=== PATIENT | male | born 1975 | race Hispanic/Latino ===

== ENCOUNTER 2020-06-24 12:17 | Outpatient (NON) | payer OTHER, BC, SELFPAY ==
[2020-06-25 13:19] LABS: SARS-CoV-2 RNA PCR Positive
== END 2020-06-24 12:18 ==
LOC: ANHCOVIDDT 12:21
PROVIDERS: PCP Internal Medicine; Visit Provider Internal Medicine
DX: U07.1 COVID-19 (principal)
CPT/HCPCS: 87635; C9803; U0003

== ENCOUNTER 2020-10-21 17:22 | Outpatient (CLI) | payer OTHER, BC, SELFPAY | END 2020-10-21 17:23 | disposition home or self-care (01) | LOC: ANHCOVIDVC 17:22 | PROVIDERS: PCP Internal Medicine | DX: Z23 Encounter for immunization (principal) | CPT/HCPCS: 0001A; 91300 ==

== ENCOUNTER 2020-11-11 16:57 | Outpatient (CLI) | payer OTHER, BC, SELFPAY | END 2020-11-11 16:58 | disposition home or self-care (01) | LOC: ANHCOVIDVC 16:58 | PROVIDERS: PCP Internal Medicine | DX: Z23 Encounter for immunization (principal) | CPT/HCPCS: 0002A; 91300 ==

== ENCOUNTER → 2021-08-15 08:05 | Outpatient (CLI) | payer OTHER, SELFPAY ==
[2021-08-16 14:39] LABS: SARS-CoV-2 RNA PCR Negative
== END ==
PROVIDERS: PCP Internal Medicine; Visit Provider Internal Medicine
DX: R68.89 Other general symptoms and signs (principal); Z20.822 Contact with and (suspected) exposure to COVID-19
CPT/HCPCS: C9803; U0003; U0005

== ENCOUNTER 2024-03-19 07:55 | Outpatient (CLI) | payer OTHER, SELFPAY ==
[2024-03-19 13:10] LABS: Alanine Aminotransferase 118 U/L (6-50); Albumin Level 4.1 g/dL (3.5-5.1); Alkaline Phosphatase 91 U/L (38-126); Anion Gap 9 mmol/L (4-12); Aspartate Amino Transferase 101 U/L (17-59); Bilirubin,Total 0.7 mg/dL (0.2-1.3); Blood Urea Nitrogen 17 mg/dL (9-20); Calcium 8.8 mg/dL (8.4-10.2); Carbon Dioxide 28 mmol/L (22-30); Chloride 105 mmol/L (98-107); Cholesterol 159 mg/dL (0-200); Estimated Glomerular Filt Rate > 60; Glucose 160 mg/dL (65-110); HDL Direct 30 mg/dL; Potassium 4.5 mmol/L (3.4-5.0); Sodium 142 mmol/L (137-145); Triglycerides 132 mg/dL (<150)
[2024-03-19 13:21] LABS: LDL Cholesterol Direct 114 mg/dL
[2024-03-19 15:26] LABS: Hemoglobin A1C 7.4 % (<5.7)
== END 2024-03-19 07:56 | disposition home or self-care (01) ==
LOC: ANHGOSHLAB 07:57
PROVIDERS: PCP Family Medicine; Visit Provider Family Medicine
DX: E78.5 Hyperlipidemia, unspecified (principal); R73.03 Prediabetes; Z13.228 Encounter for screening for other metabolic disorders
CPT/HCPCS: 36415; 80053; 80061; 83036

== ENCOUNTER 2025-03-22 07:45 | Outpatient (CLI) | payer OTHER, SELFPAY ==
--- NOTE | 2025-04-08 14:56 | WPDHOMESLEEP ---
Sleep Study - Home Unattended Date of Study: 03/22/25 Ordering Provider: Adama Jovel MD Interpreting Provider: Sofia Reinoso DO Home Sleep Study Type: Watch PAT Height: 1.8 m Weight: 165.108 kg Body Mass Index: 50.8 Neck Circumference (inches): 22 [place]: 4 Reason for Sleep Study loud snoring, interruptions in breathing while asleep Sleep History The patient is a 49-year-old male that had a sleep study ordered by his primary care physician for evaluation of sleep apnea. The patient admits to snoring loudly, interruptions in breathing while asleep and trouble maintaining sleep. He does choke or gasp at night. He does have trouble breathing on his back. He denies morning headaches. He does have a dry or sore mouth /throat in the morning. He denies nocturnal heartburn. He urinates twice throughout the night. He does have difficulty falling asleep. He does have difficulty returning to sleep if he wakes up throughout the night. He does use hypnotic or sedative. He denies feeling anxious about sleep. He denies feeling tired or sleepy during the day. He denies feeling tired in the morning. He denies having the urge to fall asleep during the day. He does feel drowsy while driving. He denies sleep paralysis, cataplexy and hypnagogic/ hypnopompic hallucinations. He denies clenching or grinding his teeth. He denies kicking or jerking his legs excessively. He denies having a restless feeling in his legs. He goes to bed at 8:00 p.m. on work days and at 9:00 p.m. on his days off. It takes him 30 minutes to fall asleep. He gets 9 hours of sleep per night. His sleep is somewhat restorative on days off. He denies taking any planned naps. He denies dream enactment behavior. He denies sleep walking. He consumes 1-2 cups of caffeinated beverage per day. He denies tobacco and alcohol use. He denies exercising on a regular basis. [facility] Past Medical History Medical History Seasonal allergies Abscess of buttock, right Hyperlipidemia Hypertension Surgical History Surgical History S/P orchiopexy (~1986) History of ectropion repair (~1983) Family History Family History Mother Diabetes mellitus Hypertension Bipolar disorder Father Acute myocardial infarction Diabetes mellitus Malignant neoplasm of prostate Grandparent , Alzheimers Age 96 Alzheimer disease Grandparent , Pneumonia Age 72 Acute myocardial infarction Diabetes mellitus Grandparent , Age Unknown Diabetes mellitus Grandparent , Age Unknown Diabetes mellitus Social History Social History Social History: Caffeine- 2-6 cups of coffee daily Smoking status: Never smoker Alcohol intake: current Alcohol use details: socially/rare Substance use: never Substance use type: does not use Do You Feel Safe in your Home?: Yes Lack of Transportation: No Lack of Food: Never True Current Housing: I Have Housing Concerned About Future Housing: No Difficulty Paying Gas/Electric Bills: No Difficulty Paying for Meds: No Currently Unemployed: No Education: Decline to Answer Difficulty w/ Childcare or Family Care: No Living arrangements: with family Occupation/Education: occupation Gender identity (if verbalized by the patient): Male Sexual Orientation (if Verbalized by the Patient): Straight or Heterosexual Agree to blood products: Yes Medications Home Medications ?Medication ?Instructions ?Recorded ?Confirmed ?Type atorvastatin 10 mg tablet 10 mg PO DAILY #90 tabs 02/25/25 02/25/25 Rx metoprolol succinate 50 mg 50 mg PO DAILY #90 tabs 02/25/25 02/25/25 Rx tablet,extended release 24 hr testosterone 50 mg/mL 50 mg IM WEEKLY 02/25/25 02/25/25 History intramuscular solution tirzepatide 15 mg/0.5 mL 15 mg (0.5 mL) subcut WEEKLY #2 mL 02/25/25 02/25/25 Rx subcutaneous pen injector (Caleb) Sleep Procedure The sleep study was completed using [employer] a technically adequate device with seven channels: peripheral arterial tone, actigraphy, body position, snore, respiratory movement, pulse oximetry, sleep staging, and heart rate. Prior to using the device, the patient received verbal and written instructions for its application and was provided with the help desk phone number for additional telephonic instruction with 24-hour availability of qualified personnel to answer questions. The study was scored using CMS guidelines. Sleep Architecture The total recording time is 9 hrs, 35 min. The total sleep time is 8 hrs, 46 min. Sleep latency is 22 minutes. REM latency is 74 minutes. The patient had 5 episodes of waking. Sleep architecture shows 5.1% deep sleep, 65.7% light sleep, and (as % Total Sleep Time) showed NREM (Light 65.7%; Deep 5.1%), and a 29.2% stage REM. The patient spent 39.2% of total sleep time in the supine position. Sleep efficiency was 91.48. Respiratory Analysis The overall AHI (pAHI 4%:) is 74.3. The overall AHI (pAHI 3%:) is 78.4. The central AHI is 1.5. The AHI was 81.7 in NREM and 70.4 in REM sleep. The AHI was 87.2 in Supine and 72.6 in Non-supine sleep. Percent of Cristian Melendez respirations is 0.0. Oximetry Data The oxygen desaturation index (RACHELL 4%:) is 66.8. The mean saturation is 89%, and the lowest saturation is 64%. Time spent with saturation < 88% is 175.1 minutes. Snoring Profile Snoring average intensity is 55 dB. The patient snored above 45 decibels for 337.6 minutes, 64.1% of sleep time. Cardiac Profile The average pulse rate is 80 beats per minutes. The lowest pulse rate is 58 bpm. The highest pulse rate reported is 123 bpm. Atrial fibrillation was not detected. Premature beats occur <0.1 per minute. Assessment and Plan Assessment and Plan (1) REX (obstructive sleep apnea): Code(s): G47.33 - Obstructive sleep apnea (adult) (pediatric) Status: Acute Assessment and Plan: The patient had an overall AHI of 74.3 with desaturation down to 64%. This is consistent with severe sleep apnea. I recommend that the patient have a CPAP Titration study with the use of a hypnotic to ensure we obtain enough sleep data and find an optimal pressure setting. Data The data obtained during this sleep study is adequate for interpretation. Certification This sleep study has been reviewed by a board certified sleep medicine physician.
[2025-04-13 17:12] VITALS: BMI 50.8
== END 2025-03-23 13:27 | disposition home or self-care (01) ==
LOC: ANHCSM 07:47
PROVIDERS: PCP Family Medicine; Visit Provider Family Medicine
DX: G47.10 Hypersomnia, unspecified (principal); G47.33 Obstructive sleep apnea (adult) (pediatric)
CPT/HCPCS: 95800

== ENCOUNTER 2025-04-15 08:16 | Outpatient (CLI) | payer OTHER, SELFPAY ==
[2025-04-15 13:14] LABS: Hematocrit 57.8 % (42.0-52.0); Hemoglobin 18.8 g/dL (14.0-18.0); Immature Granulocyte Percent A 0.8 % (0-0.5); Lymphocytes Absolute Auto 2.16 K/mm3 (0.9-3.2); Mean Corpuscular HGB Conc 32.5 g/dl (32-36); Mean Corpuscular Hemoglobin 29.7 pg (26-34); Mean Corpuscular Volume 91.5 fl (80-100); Nucleated Red Blood Cells Absolute Auto 0.000 K/mm3 (0.0-0.012); Nucleated Red Blood Cells Perc 0.0 % (0.0-0.2); Platelet Count Result 284 k/mm3 (150-375); Red Blood Count 6.32 M/mm3 (4.6-6.20); White Blood Count 10.5 K/mm3 (4.5-10.0)
[2025-04-15 13:38] LABS: Hemoglobin A1C 5.4 % (<5.7)
[2025-04-15 13:54] LABS: Alanine Aminotransferase 30 U/L (6-50); Albumin Level 4.4 g/dL (3.5-5.1); Alkaline Phosphatase 70 U/L (38-126); Anion Gap 9 mmol/L (4-12); Aspartate Amino Transferase 71 U/L (17-59); Bilirubin,Total 1.1 mg/dL (0.2-1.3); Blood Urea Nitrogen 15 mg/dL (9-20); Calcium 9.5 mg/dL (8.4-10.2); Carbon Dioxide 26 mmol/L (22-30); Chloride 106 mmol/L (98-107); Cholesterol 141 mg/dL (0-200); Estimated Glomerular Filt Rate > 60; Glucose 88 mg/dL (65-110); HDL Direct 31 mg/dL; Potassium 4.0 mmol/L (3.4-5.0); Sodium 141 mmol/L (137-145); Thyroid Stimulating Hormone Reflex 1.910 uIU/mL (0.465-4.68); Total Protein 7.6 g/dL (6.3-8.2); Triglycerides 98 mg/dL (<150)
[2025-04-15 15:02] LABS: Vitamin B12 660.0 pg/mL (239-931)
[2025-04-15 16:27] LABS: MALB Creatinine Ratio 48.6 mg/g (0-30)
== END 2025-04-15 08:17 | disposition home or self-care (01) ==
LOC: ANHGOSHLAB 08:16
PROVIDERS: PCP Family Medicine; Visit Provider Family Medicine
DX: I10 Essential (primary) hypertension (principal); E53.8 Deficiency of other specified B group vitamins; Z00.00 Encounter for general adult medical examination without abnormal findings; E11.9 Type 2 diabetes mellitus without complications; E55.9 Vitamin D deficiency, unspecified; E78.5 Hyperlipidemia, unspecified
CPT/HCPCS: 36415; 80053; 80061; 82043; 82306; 82607; 83036; 84443; 85025

== ENCOUNTER → 2025-04-20 | Outpatient (CLI) | payer OTHER, SELFPAY ==
--- NOTE | 2025-05-07 11:26 | P.SLEEP_ITS ---
Sleep Study Date of Study: 04/20/25 Ordering Provider: Adama Jovel MD Interpreting Physician: Coty Valentine MD Sleep Study Type: CPAP Titration Height: 1.8 m Weight: 160.572 kg Body Mass Index: 49.4 Neck Circumference (inches): 22 [place]: 4 Reason for Sleep Study * 03/22/2025 home sleep test using WatchPat showing severe obstrutive sleep apnea, AHI 74.3 with desaturation to 64%. He returns for a CPAP titration. Sleep History His sleep history is taken from his 03/22/25 home sleep test. Jaden Nair is a 49-year-old male who had a home sleep test for snoring and witnessed apneas. The patient admits to snoring loudly, interruptions in breathing while asleep and trouble maintaining sleep. He does choke or gasp at night. He does have trouble breathing on his back. He denies morning headaches. He has a dry or sore mouth /throat in the morning. He denies nocturnal heartburn. He urinates twice during the night. He has difficulty falling asleep and difficulty returning to sleep when he wakes during the night. He does use hypnotic or sedative. He denies feeling anxious about sleep. He denies feeling tired or sleepy during the day. He denies feeling tired in the morning. He denies cunningham ving the urge to fall asleep during the day. He feels drowsy while driving. He denies sleep paralysis, cataplexy and hypnagogic/ hypnopompic hallucinations. He denies clenching or grinding his teeth. He denies kicking or jerking his legs excessively. He denies having a restless feeling in his legs. Normal bedtime is 8:00 p.m. on work days and at 9:00 p.m. on his days off. It takes him 30 minutes to fall asleep. He gets 9 hours of sleep per night. His sleep is somewhat restorative on days off. He denies taking any planned naps. He denies dream enactment behavior. He denies sleep walking. He consumes 1-2 cups of caffeinated beverage per day. He denies tobacco and alcohol use. He denies exercising on a regular basis. [facility] Past Medical History Medical History REX (obstructive sleep apnea) Seasonal allergies Abscess of buttock, right Hyperlipidemia Hypertension Surgical History Surgical History S/P orchiopexy (~1986) History of ectropion repair (~1983) Family History Family History Mother Diabetes mellitus Hypertension Bipolar disorder Father Acute myocardial infarction Diabetes mellitus Malignant neoplasm of prostate Grandparent , Alzheimers Age 96 Alzheimer disease Grandparent , Pneumonia Age 72 Acute myocardial infarction Diabetes mellitus Grandparent , Age Unknown Diabetes mellitus Grandparent , Age Unknown Diabetes mellitus Social History Social History Social History: Caffeine- 2-6 cups of coffee daily Smoking status: Never smoker Alcohol intake: current Alcohol use details: socially/rare Substance use: never Substance use type: does not use Do You Feel Safe in your Home?: Yes Lack of Transportation: No Lack of Food: Never True Current Housing: I Have Housing Concerned About Future Housing: No Difficulty Paying Gas/Electric Bills: No Difficulty Paying for Meds: No Currently Unemployed: No Education: Decline to Answer Difficulty w/ Childcare or Family Care: No Living arrangements: with family Occupation/Education: occupation Gender identity (if verbalized by the patient): Male Sexual Orientation (if Verbalized by the Patient): Straight or Heterosexual Agree to blood products: Yes Medications Home Medications ?Medication ?Instructions ?Recorded ?Confirmed ?Type atorvastatin 10 mg tablet 10 mg PO DAILY #90 tabs 02/0902/25/25 Rx metoprolol succinate 50 mg 50 mg PO DAILY #90 tabs 02/25/25 Rx tablet,extended release 24 hr testosterone 50 mg/mL 50 mg IM WEEKLY 02/25/25 History intramuscular solution tirzepatide 15 mg/0.5 mL 15 mg (0.5 mL) subcut WEEKLY #2 mL 02/25/25 02/25/25 Rx subcutaneous pen injector (Caleb) lisinopril 10 mg tablet 10 mg PO DAILY #90 tabs 04/05 Rx Sleep Procedure A full CPAP polysomnogram using the [employer] multi-channel system recorded the standard physiologic parameters including EEG, EOG, submentalis EMG, anterior tibialis EMG, EKG, body position, nasal and oral airflow using nasal pressure sensor and thermistor. Respiratory parameters of chest and abdominal movements were recorded with Respiratory Inductance Plethysmography belts. Oxygen saturation was recorded by pulse oximetry. Video monitoring was also performed. Sleep stages, periodic limb movements, and EEG arousals were scored in 30 second epochs according to the criteria of the AASM Scoring Manual. The Apnea-Hypopnea Index was calculated using [facility] guidelines for definition of hypopnea while scoring respiratory events. The patient was started on CPAP using a large [employer] Solo nasal mask, titrated from CPAP 4 cm to CPAP 17 cm. At CPAP 17 cm, the patient spent 28.5 minutes awake, 7.5 minutes in non-REM and 17.5 minutes in REM with a sleep efficiency of 87.7% and a residual apnea-hypopnea index of 19.2 with a minimum saturation of 90%. He had supine REM at this setting. Sleep Architecture The total recording time was 419.4 minutes. The total sleep time was 384.0 minutes. Sleep latency was 8.0 minutes. REM latency was 60.0 minutes. Sleep efficiency was 91.6%. The patient had 26 awakenings for an awakening index of 4.1. Wake after Sleep Onset time was 27.0 minutes. The patient spent 23.5 minutes, 6.1% of total sleep time in Stage N1. The patient spent 243.0 minutes, 63.3% in Stage N2. The patient spent 25.0 minutes, 6.5% in Stage N3. The patient spent 92.5 minutes, 24.1% in Stage REM. Respiratory Analysis The patient had 84 hypopneas, 16 obstructive apneas, no mixed apneas, and 2 central apneas for an overall Apnea Hypopnea Index of 15.9 events per hour. The REM Apnea Hypopnea Index was 24.0. The NREM Apnea Hypopnea Index was 13.4. The patient had a Central Apnea Hypopnea Index of 0.3. There were no Respiratory Effort Related Arousals. The Respiratory Disturbance Index is 17.7 events per hour. There was no evidence of Cristian-Melendez Respirations. Arousals There were 81 total arousals for an arousal index of 12.7. There were 68 spontaneous arousals for an index of 10.6. There were 4 arousals due to respiratory events for an index of 0.6. There were 6 arousals due to periodic limb movements for an index of 0.9. There were 3 arousals due to isolated limb movements for an index of 0.5. Periodic Limb Movements The patient had 18 isolated limb movements with an index of 2.8. The patient had 80 periodic limb movements with index of 12.5. Patient had a total of 98 limb movements with a total limb movement index of 15.3. Oximetry Data The patient had an average oxygen saturation of 92.5% in sleep with a minimum oxygen saturation of 80% and a maximum oxygen saturation of 98%. The patient had 110 oxygen desaturations that were 4% or greater resulting in an Oxygen Desaturation Index of 17.2. The patient spent 15.4 minutes, 3.7% of total sleep time with an oxygen saturation below 88%. Snoring Profile At the optimal pressure, snoring was eliminated. Cardiac Profile The EKG showed normal sinus rhythm. The patient had an average pulse rate of 76 bpm with a minimum pulse rate of 60 bpm and a maximum pulse rate of 112 bpm. No arrhythmias noted. EEG Profile Unremarkable, no evidence of seizures. Assessment and Plan Assessment and Plan (1) REX (obstructive sleep apnea): Code(s): G47.33 - Obstructive sleep apnea (adult) (pediatric) Status: Acute Assessment and Plan: This full night CPAP titration on 04/20/2025 shows a successful treatment using CPAP 17 cm and a large [employer] Solo nasal pillow with heated humidity. At CPAP 17 cm, the patient spent 28.5 minutes awake, 7.5 minutes in non-REM and 17.5 minutes in REM with a sleep efficiency of 87.7% and a residual apnea-h ypopnea index of 19.2 with a minimum saturation of 90%. He had supine REM at this setting. He had supine REM at lower pressures, as well, but 17 cm improved overall obstructive events. His initial apnea-hypopnea index was 74 on the baseline study, so this is a large improvement. The patient should be prescribed this [employer]Med equipment as well as tubing, filters and reservoir. This should be used with all episodes of sleep. Compliance should be reviewed within 31-90 days of starting therapy for usage greater than 4 hours per night greater than 70% of the nights. The patient should be asked about symptoms such as excessive daytime sleepiness, quality of sleep, decreased nocturia, increased mental functioning such as memory, mood, and concentration. BMI is 49.4. Weight management is advised. Clinical data suggests that weight loss of 10% can reduce the severity of respiratory events and snoring and improve AHI by as much as 25%. Data The data obtained during this sleep study is adequate for interpretation. Certification This sleep study has been reviewed by a board certified sleep medicine physician.
[2025-05-07 12:03] VITALS: BMI 49.4
== END | disposition home or self-care (01) ==
LOC: ANHCSM 07:46
PROVIDERS: PCP Family Medicine; Visit Provider Family Medicine
DX: G47.33 Obstructive sleep apnea (adult) (pediatric) (principal); G47.30 Sleep apnea, unspecified; G47.34 Idiopathic sleep related nonobstructive alveolar hypoventilation; R40.0 Somnolence
CPT/HCPCS: 95811

== ENCOUNTER 2025-07-06 01:26 | Day surgery (SDC) | payer OTHER, SELFPAY ==
[2025-06-17 13:36] VITALS: BMI 47.7
[2025-07-06 12:17] VITALS: BP 136/71; PULSE 88; RESP 16; TEMP 36.1; O2SAT 97; BMI 45.7
[2025-07-06] MEDS: LACTATED RINGERS 1,000 ML 150 ML IV CONT (12:26)
--- NOTE | 2025-07-06 12:30 | WPDANESEPPF ---
Anes - Initial Pre Proc Eval Procedure: Operation Date: 07/06/25 13:30 Proposed Procedures p Screening Colonoscopy - Flakito Crum DO Date/Time: 07/06/25 12:30 Surgeon: Flakito Crum DO Pre Op Diagnosis: Neoplasm screening Patient Data Age: 49 Gender: M Height: 1.8 m Weight: 148.7 kg Last Vital Signs Temp 97.0 F L 07/06/25 12:17 Pulse 88 07/06/25 12:17 Resp 16 07/06/25 12:17 BP 136/71 07/06/25 12:17 Pulse Ox 97 07/06/25 12:17 O2 Del Method Room Air 07/06/25 12:17 Allergies Allergy/AdvReac Type Severity Reaction Status Date / Time No Known Allergies Allergy Verified 07/06/25 12:16 Home Medications ?Medication ?Instructions ?Recorded ?Confirmed ?Type atorvastatin 10 mg tablet 10 mg PO DAILY #90 tabs 02/25/25 07/06/25 Rx metoprolol succinate 50 mg 50 mg PO DAILY #90 tabs 02/25/25 07/06/25 Rx tablet,extended release 24 hr testosterone 50 mg/mL 50 mg IM WEEKLY 02/25/25 06/17/25 History intramuscular solution lisinopril 10 mg tablet 10 mg PO DAILY #90 tabs 04/19/25 07/06/25 Rx DME - CPAP #1 ea 05/07/25 Rx tirzepatide 15 mg/0.5 mL 15 mg (0.5 mL) subcut WEEKLY #2 mL 05/24/25 06/17/25 Rx subcutaneous pen injector (Mounjaro) Patient hx anesthesia problems: none Family hx anesthesia problems: none Results Review: All pre-operative results and documents have been reviewed as part of the pre-operative evaluation. [facility] Past Medical History Medical History REX (obstructive sleep apnea) Seasonal allergies Abscess of buttock, right Hyperlipidemia Hypertension Surgical History Surgical History S/P orchiopexy (~1986) History of ectropion repair (~1983) Family History Family History Mother Diabetes mellitus Hypertension Bipolar disorder Father Acute myocardial infarction Diabetes mellitus Malignant neoplasm of prostate Grandparent , Alzheimers Age 96 Alzheimer disease Grandparent , Pneumonia Age 72 Acute myocardial infarction Diabetes mellitus Grandparent , Age Unknown Diabetes mellitus Grandparent , Age Unknown Diabetes mellitus Social History Social History Social History: Caffeine- 2-6 cups of coffee daily Smoking status: Never smoker Alcohol intake: current Alcohol use details: socially/rare Substance use: never Substance use type: does not use Do You Feel Safe in your Home?: Yes Lack of Transportation: No Lack of Food: Never True Current Housing: I Have Housing Concerned About Future Housing: No Difficulty Paying Gas/Electric Bills: No Difficulty Paying for Meds: No Currently Unemployed: No Education: Decline to Answer Difficulty w/ Childcare or Family Care: No Living arrangements: with family Occupation/Education: occupation Gender identity (if verbalized by the patient): Male Sexual Orientation (if Verbalized by the Patient): Straight or Heterosexual Agree to blood products: Yes Anes - Eval Final PreProcedure Day of Procedure 07/06/25 12:30 Patient weight: morbidly obese Lungs: normal air movement Airway: Mallampati scale class II Neurological: alert and oriented Last oral intake: >/= 8 hours ASA classification: III Emergent: no Anesthetic plan: proceed Anesthesia type and monitoring: general GIVS and standard monitoring Results Review: All pre-operative results and documents have been reviewed as part of the pre-operative evaluation. HTN, hyperlipidemia, REX on CPAP, DM fsbs 79 and pt feels well other than headache. Informed Consent: The patient's anesthetic plan and its attendant risks and benefits were discussed with the patient/family/POA. Questions were solicited and answers provided to the satisfaction of the patient/family/POA.
--- NOTE | 2025-07-06 13:16 | PM.IMHP ---
H&P: HPI History of Present Illness Date/Time: 07/06/25 13:16 Chief Complaint: Screening for colorectal cancer Narrative: This is a 49-year-old man who presents for his 1st colonoscopy. He denies any hematochezia or melena. He denies any first-degree relative family history of colon cancer but does have an uncle who had colon cancer. Review of Systems Review of Systems: All systems reviewed & are unremarkable except as noted in HPI and below Constitutional: Constitutional: Denies chills, Denies fever(s), Denies headache(s) and Denies weight loss Eyes: Eyes: Denies change in vision ENT: Denies dizziness, Denies headache(s), Denies neck mass and Denies throat swelling Cardiovascular: Cardiovascular: Denies chest pain, Denies lightheadedness and Denies dyspnea Respiratory: Respiratory: Denies cough, Denies dyspnea and Denies wheezing Gastrointestinal: Gastrointestinal: Denies abdominal pain, Denies change in bowel habits, Denies nausea and Denies vomiting Genitourinary: Genitourinary: Denies hematuria and Denies dysuria Musculoskeletal: Musculoskeletal: Reports as per HPI Integumentary/Breasts: Skin/Breast: Reports as per HPI Neurologic: Denies dizziness and Denies headache(s) Allergic/Immunologic: Allergic/Immunologic: Denies throat swelling and Denies wheezing PMFSH Past Medical History Medical History REX (obstructive sleep apnea) Seasonal allergies Abscess of buttock, right Hyperlipidemia Hypertension Surgical History Surgical History S/P orchiopexy (~1986) History of ectropion repair (~1983) Family History Family History Mother Diabetes mellitus Hypertension Bipolar disorder Father Acute myocardial infarction Diabetes mellitus Malignant neoplasm of prostate Grandparent , Alzheimers Age 96 Alzheimer disease Grandparent , Pneumonia Age 72 Acute myocardial infarction Diabetes mellitus Grandparent , Age Unknown Diabetes mellitus Grandparent , Age Unknown Diabetes mellitus Social History Social History Social History: Caffeine- 2-6 cups of coffee daily Smoking status: Never smoker Alcohol intake: current Alcohol use details: socially/rare Substance use: never Substance use type: does not use Do You Feel Safe in your Home?: Yes Lack of Transportation: No Lack of Food: Never True Current Housing: I Have Housing Concerned About Future Housing: No Difficulty Paying Gas/Electric Bills: No Difficulty Paying for Meds: No Currently Unemployed: No Education: Decline to Answer Difficulty w/ Childcare or Family Care: No Living arrangements: with family Occupation/Education: occupation Gender identity (if verbalized by the patient): Male Sexual Orientation (if Verbalized by the Patient): Straight or Heterosexual Agree to blood products: Yes Meds Home Medications and Allergies Home Medications ?Medication ?Instructions ?Recorded ?Confirmed ?Type atorvastatin 10 mg tablet 10 mg PO DAILY #90 tabs 02/25/25 07/06/25 Rx metoprolol succinate 50 mg 50 mg PO DAILY #90 tabs 02/25/25 07/06/25 Rx tablet,extended release 24 hr testosterone 50 mg/mL 50 mg IM WEEKLY 02/25/25 06/17/25 History intramuscular solution lisinopril 10 mg tablet 10 mg PO DAILY #90 tabs 04/19/25 07/06/25 Rx DME - CPAP #1 ea 05/07/25 Rx tirzepatide 15 mg/0.5 mL 15 mg (0.5 mL) subcut WEEKLY #2 mL 05/24/25 06/17/25 Rx subcutaneous pen injector (Caleb) Allergies Allergy/AdvReac Type Severity Reaction Status Date / Time No Known Allergies Allergy Verified 07/06/25 12:16 Vital Signs Vital Signs - 24 hr 07/06/25 12:17 Temperature 97.0 F L Pulse Rate 88 Respiratory Rate 16 Blood Pressure 136/71 Pulse Oximetry 97 Oxygen Delivery Room Air Exam Const: General: no acute distress and alert Orientation/consciousness: patient oriented x3 HENMT: Head: normocephalic and atraumatic Ears: hearing grossly normal bilaterally Face/Nose/Sinus: Normal nares present Mouth: Yes Normal oral and palatal mucosa present Eyes: Periorbital: periorbital findings normal Sclera: sclerae normal EOM: EOMs intact bilaterally Neck: Neck: normal visual inspection, no lymphadenopathy and trachea midline Chest: Chest palpation & inspection: normal inspection of the chest Resp: Effort & Inspection: normal respiratory effort Auscultation: clear to auscultation bilaterally Cardio: Jugular venous distension: no JVD Rate: regular rate Rhythm: regular rhythm Heart sounds: S1 normal heart sound present and S2 normal heart sound present Peripheral pulses: Peripheral pulses 2+ throughout GI: Inspection: normal to inspection GI Palp: Yes Soft to palpation, No Tenderness to palpation present (GI), No Guarding due to palpation present (GI) and No Rebound tenderness present Percussion: Yes normal to percussion Auscultation: normal bowel sounds : General: Yes no CVA tenderness Back/Spine/Pelvis: Back: no CVA tenderness Neuro: General: patient oriented x3, no focal motor deficits and CN's II-XI intact bilaterally Cognition (Neuro): normal cognition Speech: normal speech Motor exam (neuro): 5/5 motor strength present throughout Extrem: General: capillary refill normal and no clubbing, cyanosis or edema Assessment and Plan Assessment and plan (1) Screening for colorectal cancer: Code(s): Z12.11 - Encounter for screening for malignant neoplasm of colon; Z12.12 - Encounter for screening for malignant neoplasm of rectum Status: Acute Assessment and Plan: I have recommended colonoscopy. I have discussed the procedure, risks, benefits, and alternatives. Questions were answered. Patient is agreeable to proceed.
[2025-07-06 13:39] VITALS: BP 107/47; PULSE 90; RESP 18; O2SAT 94
[2025-07-06 13:49] VITALS: BP 124/75; PULSE 90; RESP 18; O2SAT 94
[2025-07-06 13:59] VITALS: BP 131/94; PULSE 93; RESP 21; O2SAT 97
== END 2025-07-06 14:16 | disposition home or self-care (01) ==
PROVIDERS: PCP Family Medicine; Visit Provider Surgery
PROC: 0DJD8ZZ Inspection of Lower Intestinal Tract, Via Natural or Artificial Opening Endoscopic (ICD-10-PCS; CPT 45378; principal; 2025-07-06 13:30)
DX: Z12.11 Encounter for screening for malignant neoplasm of colon (principal); Z79.85 Long-term (current) use of injectable non-insulin antidiabetic drugs; E66.01 Morbid (severe) obesity due to excess calories; Z68.42 Body mass index [BMI] 45.0-49.9, adult
CPT/HCPCS: 45378; 82948; J2003; J2704; J7120

== ENCOUNTER 2025-07-16 08:00 | Outpatient (CLI) | payer OTHER, SELFPAY ==
[2025-07-16 12:53] LABS: Hematocrit 53.5 % (42.0-52.0); Hemoglobin 17.4 g/dL (14.0-18.0); Immature Granulocyte Percent A 1.0 % (0-0.5); Lymphocytes Absolute Auto 1.93 K/mm3 (0.9-3.2); Mean Corpuscular HGB Conc 32.5 g/dl (32-36); Mean Corpuscular Hemoglobin 29.6 pg (26-34); Mean Corpuscular Volume 91.0 fl (80-100); Nucleated Red Blood Cells Absolute Auto 0.000 K/mm3 (0.0-0.012); Nucleated Red Blood Cells Perc 0.0 % (0.0-0.2); Platelet Count Result 278 k/mm3 (150-375); Red Blood Count 5.88 M/mm3 (4.6-6.20); White Blood Count 10.4 K/mm3 (4.5-10.0)
[2025-07-16 15:16] LABS: Alanine Aminotransferase 21 U/L (6-50); Albumin Level 4.3 g/dL (3.5-5.1); Alkaline Phosphatase 61 U/L (38-126); Anion Gap 5 mmol/L (4-12); Aspartate Amino Transferase 43 U/L (17-59); Bilirubin,Total 1.1 mg/dL (0.2-1.3); Blood Urea Nitrogen 19 mg/dL (9-20); Calcium 9.3 mg/dL (8.4-10.2); Carbon Dioxide 29 mmol/L (22-30); Chloride 106 mmol/L (98-107); Estimated Glomerular Filt Rate > 60; Glucose 78 mg/dL (65-110); Potassium 4.2 mmol/L (3.4-5.0); Sodium 140 mmol/L (137-145); Total Protein 7.3 g/dL (6.3-8.2)
[2025-07-16 15:52] LABS: Prostate Specific Antigen 1.6 ng/mL (< OR = 4.0)
[2025-07-20 13:09] LABS: Free Testosterone (Direct) 20.5 pg/mL (7.2-24.0)
[2025-07-21 08:08] LABS: Estradiol, Sensitive 80.8 pg/mL (8.0-35.0)
== END 2025-07-16 08:01 | disposition home or self-care (01) ==
LOC: ANHGOSHLAB 08:02
PROVIDERS: PCP Family Medicine
DX: N52.8 Other male erectile dysfunction (principal); E29.1 Testicular hypofunction; D75.1 Secondary polycythemia; Z79.890 Hormone replacement therapy
CPT/HCPCS: 36415; 80053; 82670; 84153; 84270; 84402; 84403; 85025

== ENCOUNTER 2025-07-26 08:30 | Emergency (ER) | payer OTHER, SELFPAY ==
[2025-07-26 08:41] VITALS: BP 127/83; PULSE 86; RESP 16; TEMP 35.5; O2SAT 97
[2025-07-26 09:02] LABS: EDCOVIDSCREEN Positive (Negative)
--- NOTE | 2025-07-26 09:15 | ED.URI ---
HPI - URI/Sore Throat General Chief Complaint: Upper Respiratory Infection Stated Complaint: sick Time Seen by Provider: 07/26/25 09:07 Source: patient and RN notes reviewed Mode of arrival: ambulatory Limitations: no limitations History of Present Illness HPI Narrative: 49-year-old male patient with history of hypertension and diabetes presents today with a 3-4 day history of nasal congestion, dry cough, headache, nausea, bilateral ear pain, sore throat. Denies fever, shortness of breath, vomiting or diarrhea. He has been taking Mucinex, DayQuil, NyQuil with some improvement. States last week he was meeting with a customer for work who was coughing. Related Data Home Medications ?Medication ?Instructions ?Recorded ?Confirmed ?Last Taken ?Type testosterone 50 mg/mL 50 mg IM WEEKLY 02/25/25 06/17/25 Unknown History intramuscular solution Allergies Allergy/AdvReac Type Severity Reaction Status Date / Time No Known Allergies Allergy Verified 07/26/25 08:49 [facility] [place] Past Medical History Medical History REX (obstructive sleep apnea) Seasonal allergies Abscess of buttock, right Hyperlipidemia Hypertension Surgical History Surgical History S/P orchiopexy (~1986) History of ectropion repair (~1983) Family History Family History Mother Diabetes mellitus Hypertension Bipolar disorder Father Acute myocardial infarction Diabetes mellitus Malignant neoplasm of prostate Grandparent , Alzheimers Age 96 Alzheimer disease Grandparent , Pneumonia Age 72 Acute myocardial infarction Diabetes mellitus Grandparent , Age Unknown Diabetes mellitus Grandparent , Age Unknown Diabetes mellitus Social History Social History Social History: Caffeine- 2-6 cups of coffee daily Smoking status: Never smoker Alcohol intake: current Alcohol use details: socially/rare Substance use: never Substance use type: does not use Lack of Transportation: No Lack of Food: Never True Current Housing: I Have Housing Concerned About Future Housing: No Difficulty Paying Gas/Electric Bills: No Difficulty Paying for Meds: No Currently Unemployed: No Education: Decline to Answer Difficulty w/ Childcare or Family Care: No Living arrangements: with family Occupation/Education: occupation Gender identity (if verbalized by the patient): Male Sexual Orientation (if Verbalized by the Patient): Straight or Heterosexual Spiritual care concerns: No Agree to blood products: Yes Comments At time of signature, I have reviewed and agree with nursing past medical, surgical, social and family history unless otherwise noted. Please see nursing chart for further information. There is no relevant family history pertinent to the presenting complaint Exam Narrative: GENERAL: Mildly ill-appearing, well-nourished, and in no acute distress. HEAD: Normocephalic, atraumatic. EYES: EOMI. No redness or drainage. Conjunctivae normal. ENT: Mucous membranes pink and moist. Nares congested. No rhinorrhea. TMs normal bilaterally. Throat normal. Uvula midline. NECK: Normal AROM. Supple. No lymphadenopathy. CHEST: No respiratory distress. Clear to auscultation. HEART: Regular rate and rhythm. No murmur appreciated. EXTREMITIES: Normal range of motion. No edema. SKIN: Warm, dry, no rash. Capillary refill normal. Normal skin turgor. NEURO: No focal deficits. Alert and oriented x3. Gait steady. PSYCH: Normal affect. No signs of depression or anxiety. Course Course Level of Care: Express Care Visit Vital Signs Vital signs: Vital Signs Temperature 96 F L 07/26/25 08:41 Pulse Rate 86 07/26/25 08:41 Respiratory Rate 16 07/26/25 08:41 Blood Pressure 127/83 07/26/25 08:41 Pulse Oximetry 97 07/26/25 08:41 Temperature 96 F L 07/26/25 08:41 Pulse Rate 86 07/26/25 08:41 Respiratory Rate 16 07/26/25 08:41 Blood Pressure 127/83 07/26/25 08:41 Pulse Oximetry 97 07/26/25 08:41 Reviewed MDM MDM Narrative Medical decision making narrative: 49-year-old male patient with history of hypertension and diabetes presents today with a 3-4 day history of nasal congestion, dry cough, headache, nausea, bilateral ear pain, sore throat. Denies fever, shortness of breath, vomiting or diarrhea. He has been taking Mucinex, DayQuil, NyQuil with some improvement. States last week he was meeting with a customer for work who was coughing. Upon exam, patient is mildly ill appearing with some nasal congestion. Exam is otherwise negative. COVID-19 positive. Recommend continuing OTC medications for symptom control. Patient agrees with plan. Vital signs stable. Anticipatory guidance and ED precautions given. Differential Diagnosis Differential Diagnosis: COVID-19, URI, influenza, strep throat Lab Data Labs: Lab Results 07/26/25 Range/Units 08:58 POC SARS CoV-2 Ag Positive (Negative) Critical Care Time Critical Care Time Critical Care Time: No Discharge Plan Discharge Clinical Impression: COVID-19 Patient Disposition: Home Condition: Stable Instructions: COVID-19 (Coronavirus Disease 2019) (ED) Additional Instructions: You have tested positive for COVID-19 today. Continue [id number] medication as needed for your symptoms. Rest and stay hydrated. As discussed, if symptoms worsen to include shortness of breath, chest pain etc., please go to the ER immediately for further evaluation and treatment. Patient Language: Macedonian Prescriptions: No Action testosterone 50 mg/mL solution 50 mg IM WEEKLY metoprolol succinate 50 mg tablet extended release 24 hr 50 mg PO DAILY Qty: 90 1RF atorvastatin 10 mg tablet 10 mg PO DAILY Qty: 90 1RF (DME) DME - CPAP See Rx Instructions .Route .MEDSUPPLY Qty: 1 0RF Rx Instructions: CPAP 17 cm and a large [employer] Solo nasal pillow with heated humidity. ResMed equipment as well as tubing, filters and reservoir. * patient is requesting through [facility]. Mounjaro 15 mg/0.5 mL pen injector 15 mg subcut WEEKLY Qty: 2 2RF lisinopril 10 mg tablet 10 mg PO DAILY Qty: 90 1RF Follow-up/Referrals: Ana Cristina Jovel MD [Primary Care Provider, Family Practice] Stand Alone Forms: Work/School Release IP Time of Disposition: 09:18
== END 2025-07-26 09:25 | disposition home or self-care (01) ==
PROVIDERS: Emergency Provider Nurse Practitioner; PCP Family Medicine
DX: U07.1 COVID-19 (principal); I10 Essential (primary) hypertension; E78.5 Hyperlipidemia, unspecified; E11.9 Type 2 diabetes mellitus without complications; Z79.85 Long-term (current) use of injectable non-insulin antidiabetic drugs
CPT/HCPCS: 87426; 99212; G0463